=== PATIENT | female | born 1980 | race Caucasian/White ===

== ENCOUNTER 2017-05-21 15:05 | Emergency (ER) ==
[2017-05-21 15:17] VITALS: BP 125/81; TEMP 99.1; BMI 34.0
[2017-05-21] MEDS ORDERED: ZOFRAN 4 MG/2 ML IVP STA (15:18)
[2017-05-21] MEDS ORDERED: TORADOL IVP STA (15:19)
--- NOTE | 2017-05-21 15:20 | ED.PDOC ---
General ED Provider: Dr. FATOU BLOCK JR Chief Complaint: Non-specific Complaint Stated Complaint: Pain mid chest since yesterday. through to back. tried OTC meds for heartburn without relief. Slight nausea 2 1/2 hrs ago. Has also taken Tyl #3 without relief[ End ]99.1 73 20 98% 125/81 05/03 Time Seen by Physician: 15:32 Mode of Arrival: Walk-In Information Source: Patient Exam Limitations: No limitations Primary Care Provider: YOSHI ABRAHAM Nursing and Triage Documentation Reviewed and Agree: No Review of Systems - Review Of Systems Constitutional: Reports: Malaise, Loss of appetite Eyes: Reports: No symptoms Ears, Nose, Mouth, Throat: Reports: No symptoms Respiratory: Reports: Other Cardiac: Reports: Chest pain (tender right parasternal at 4th rib sternal tenderness at xyphoid no other tenderness) GI: Reports: Poor appetite, Other : Reports: No symptoms Musculoskeletal: Reports: No symptoms, Other Skin: Reports: No symptoms Neurological: Reports: No symptoms Endocrine: Reports: No symptoms Hematologic/Lymphatic: Reports: No symptoms All Other Systems: Other Past Medical History - Past Medical History Previously Healthy: Yes Endocrine: Reports: None Cardiovascular: Reports: None Respiratory: Reports: None Hematological: Reports: None Gastrointestinal: Reports: None Genitourinary: Reports: Kidney stones Neuro/Psych: Reports: None Musculoskeletal: Reports: Arthritis Cancer: Reports: None Last Menstrual Period: hysterectomy Other Pertinent Past Medical History: djd - Surgical History General Surgical History: Reports: Hysterectomy, (x3), Cholecystectomy - Family History Family History: Reports: Unknown - Social History Smoking Status: Never smoker Hx Substance Use: No Alcohol Screening: Occasionally Physical Exam - Physical Exam Appearance: Well-appearing, Obese Pain Distress: Moderate Eyes: VINCE, EOMI, Conjunctiva clear ENT: Ears normal, Nose normal, Oropharynx normal Neck: Supple Respiratory: Airway patent, Breath sounds clear, Breath sounds equal, Respirations nonlabored Cardiovascular: RRR, Pulses normal, No rub, No murmur GI/: Soft, Nontender, No masses, No Organomegaly, Bowel sounds hyperactive Musculoskeletal: Normal strength, ROM intact, No edema, No calf tenderness Skin: Warm, Dry, Normal color Neurological: Sensation intact, Motor intact, Reflexes intact, Cranial nerves intact, Alert, Oriented Psychiatric: Affect appropriate, Mood appropriate Interpretation - EKG Interpretation Time of EKG #1: 15:31 Rate: Normal Rhythm: Sinus Ectopy: None [place]: NL ST Segment: Normal Critical Care Note - Critical Care Note Total Time (mins): 0 Course - Course Hematology/Chemistry: 05/21/17 15:40 05/21/17 15:40 Orders, Labs, Meds: Lab Review 05/21/17 15:40 WBC 8.97 RBC 4.29 Hgb 12.8 Hct 38.7 MCV 90.2 MCH 29.8 MCHC 33.1 RDW Coeff of [place]mie 12.2 Plt Count 342 Immature Gran % (Auto) 0.3 Neut % (Auto) 58.1 Lymph % (Auto) 33.4 [place] % (Auto) 7.0 Eos % (Auto) 0.8 Baso % (Auto) 0.4 Immature Gran # (Auto) 0.0 Neut # 5.2 Lymph # 3.0 [place] # 0.6 Eos # 0.1 Baso # 0.0 D-Dimer (Manual) 191.50 Sodium 138 Potassium 3.8 Chloride 101 Carbon Dioxide 23 Anion Gap 17.8 BUN 12 Creatinine 0.80 Estimated GFR (MDRD) 80.00 BUN/Creatinine Ratio 15.00 Glucose 93 Calcium 9.9 Total Bilirubin 0.27 AST 19 ALT 17 Alkaline Phosphatase 60 Total Creatine Kinase 100 Troponin I 0.0100 B-Natriuretic Peptide 10 Total Protein 8.0 Albumin 4.2 Globulin 3.8 Albumin/Globulin Ratio 1.11 Procalcitonin < 0.05 Orders Category Date Time Status EKG-(ED ONLY) Stat CARDIO 05/21/17 15:18 Completed ED IV/MEDIPORT/POWERPORT .ONCE EMERGENCY 05/21/17 15:18 Active IV [ED IV/MEDIPORT/POWERPORT] .ONCE EMERGENCY 05/21/17 15:19 Active B-TYPE NATRIURETIC PEPTIDE Stat LAB 05/21/17 15:40 Completed BLOOD CULTURE Stat LAB 05/21/17 15:40 Received CBC W/ AUTO DIFF Stat LAB 05/21/17 15:40 Completed COMPREHENSIVE METABOLIC PANEL Stat LAB 05/21/17 15:40 Completed CREATINE KINASE Stat LAB 05/21/17 15:40 Completed D-DIMER Stat LAB 05/21/17 15:40 Completed PROCALCITONIN Stat LAB 05/21/17 15:40 Completed TROPONIN I Stat LAB 05/21/17 15:40 Completed 0.9 % Sodium Chloride [Saline Flush] MEDS 05/21/17 15:18 Discontinued 1 syr IVF PRN PRN 0.9 % Sodium Chloride [Saline Flush] MEDS 05/21/17 15:19 Discontinued 1 syr IVF PRN PRN Hydrocodone Bit/Acetaminophen [[place] 7.5-325] MEDS 05/21/17 16:39 Discontinued 1 tab PO ONCE STA Ketorolac Tromethamine [Toradol] MEDS 05/21/17 15:19 Discontinued 30 mg IVP ONCE STA Ondansetron HCl/Pf [Zofran 4 mg/2 ml] MEDS 05/21/17 15:18 Discontinued 4 mg IVP ONCE STA CHEST, 1V AP ONLY Stat RADS 05/21/17 15:18 Completed Medications Discontinued Medications Generic Name Dose Route Start Last Admin Trade Name Freq PRN Reason Stop Dose Admin Acetaminophen/Hydrocodone Bitart 1 tab 05/21/17 16:39 05/21/17 16:51 [place] 7.5-325 PO 05/21/17 16:40 1 tab ONCE STA Administration Ketorolac Tromethamine 30 mg 05/21/17 15:19 05/21/17 16:15 Toradol IVP 05/21/17 15:20 30 mg ONCE STA Administration Ondansetron HCl 4 mg 05/21/17 15:18 05/21/17 16:15 Zofran 4 Mg/2 Ml IVP 05/21/17 15:19 4 mg ONCE STA Administration Sodium Chloride 1 syr 05/21/17 15:18 05/21/17 16:15 Saline Flush IVF 1 syr PRN PRN Administration To flush IV Sodium Chloride 1 syr 05/21/17 15:19 Saline Flush IVF PRN PRN To flush IV Vital Signs: Temp Pulse Resp BP Pulse Ox 05/21/17 15:08 99.1 F 73 20 125/81 98 Departure - Departure Time of Disposition: 17:01 Disposition: HOME SELF-CARE Discharge Problem: Chest wall pain Instructions: Thoracic Pain (ED) Condition: Good Pt referred to PMD for follow-up: Yes Additional Instructions: [place] for pain not controlled by ibuprofen or Aleve may take with Tylenol =up to 3000mg (6 tablets) per 24 hours may take [place] with ibuprofen return if pain worsening if fever over 101.0 if short of breath recheck PMD one week sooner if not resolved no lifting today limit lifting to 10 pounds for ten days the gradually increase as tolerated Prescriptions: Hydrocodone Bit/Acetaminophen [[place] 5-325] 1 - 2 tab PO Q6HR PRN #12 tablet PRN Reason: pain Allergies/Adverse Reactions: Allergies promethazine HCl [From Phenergan] Adverse Reaction (Verified 05/21/17 15:17) Hives Home Medications: Ambulatory Orders Hydrocodone Bit/Acetaminophen [[place] 5-325] 1 - 2 tab PO Q6HR PRN #12 tablet
[2017-05-21 15:49] LABS: BASOPHILS % (AUTO) 0.4 % (0.0-3.0); EOSINOPHILS # (AUTO) 0.1 K/ul (0.0-0.7); EOSINOPHILS % (AUTO) 0.8 % (0.0-7.0); HEMATOCRIT 38.7 % (37.0-47.0); HEMOGLOBIN 12.8 g/dl (12.0-16.0); IMMATURE GRANULOCYTE % (AUTO) 0.3 % (0.0-5.0); LYMPHOCYTES % (AUTO) 33.4 (10.0-50.0); MEAN CORPUSCULAR HEMOGLOBIN 29.8 pg (27.0-31.0); MEAN CORPUSCULAR HGB CONC 33.1 (31.8-35.4); MEAN CORPUSCULAR VOLUME 90.2 fl (81.0-99.0); MONOCYTES # (AUTO) 0.6 K/uL (0.4-2.0); NEUTROPHILS # (AUTO) 5.2 K/ul (2.0-6.9); NEUTROPHILS % (AUTO) 58.1; PLATELET COUNT 342 10^3/uL (140-440); RED BLOOD COUNT 4.29 10^6/ul (4.20-5.40); WHITE BLOOD COUNT 8.97 K/ul (4.6-10.2)
[2017-05-21 16:16] LABS: ALBUMIN 4.2 g/dL (3.4-5.0); ALBUMIN/GLOBULIN RATIO 1.11; ANION GAP 17.8; BILIRUBIN,TOTAL 0.27 mg/dL (0.00-1.20); CALCIUM 9.9 mg/dL (8.2-10.2); CREATININE 0.8 mg/dL (0.60-1.30); POTASSIUM 3.8 mmol/L (3.5-5.10); TROPONIN I 0.01 ng/ml (0.0000-0.4000)
--- NOTE | 2017-05-21 16:21 | DI ---
EXAM: Chest one view HISTORY: Chest pain COMPARISON: 10/15/2014 TECHNIQUE: Single view of the chest was performed FINDINGS: The lungs are clear. There is no pleural effusion or pneumothorax. The heart is normal in size. The mediastinal contour is normal. There are no acute abnormalities of the bones. IMPRESSION: No acute cardiopulmonary process.
[2017-05-21] MEDS ORDERED: NORCO 7.5-325 PO STA (16:39)
== END 2017-05-21 17:12 | disposition home or self-care (01) ==
LOC: ED 15:05
DX: R07.89 Other chest pain (principal)
CPT/HCPCS: 36415; 80053; 82550; 83880; 84145; 84484; 85025; 85379; 87040; 93005; 93010; 96374; 96375; 99283

== ENCOUNTER 2017-08-03 04:51 | Emergency (ER) ==
[2017-08-03 05:03] VITALS: BP 128/81; TEMP 98.5; BMI 33.5
[2017-08-03] MEDS ORDERED: SODIUM CHLORIDE 1,000 ML IV STA (05:05)
[2017-08-03 05:23] LABS: BASOPHILS # (AUTO) 0.1 K/uL (0-0.2); BASOPHILS % (AUTO) 0.6 % (0.0-3.0); EOSINOPHILS % (AUTO) 0.3 % (0.0-7.0); HEMATOCRIT 35.2 % (37.0-47.0); IMMATURE GRANULOCYTE % (AUTO) 0.3 % (0.0-5.0); LYMPHOCYTES # (AUTO) 2.2 K/uL (0.60-3.4); LYMPHOCYTES % (AUTO) 20.6 (10.0-50.0); MEAN CORPUSCULAR HEMOGLOBIN 30.3 pg (27.0-31.0); MEAN CORPUSCULAR HGB CONC 34.1 (31.8-35.4); MEAN CORPUSCULAR VOLUME 88.9 fl (81.0-99.0); MONOCYTES # (AUTO) 0.8 K/uL (0.4-2.0); MONOCYTES % (AUTO) 7.9 (0-10); NEUTROPHILS # (AUTO) 7.4 K/ul (2.0-6.9); NEUTROPHILS % (AUTO) 70.3; PLATELET COUNT 307 10^3/uL (140-440); RED BLOOD COUNT 3.96 10^6/ul (4.20-5.40); WHITE BLOOD COUNT 10.52 K/ul (4.6-10.2)
[2017-08-03 05:29] LABS: BILIRUBIN,URINE Negative (NEGATIVE); KETONES,URINE Trace (NEGATIVE); LEUKOCYTE ESTERASE ,URINE 3+ (NEGATIVE); NITRITE,URINE Positive (NEGATIVE); PROTEIN,URINE 1+ (NEGATIVE); URINE, BLOOD Negative (NEGATIVE)
[2017-08-03 05:32] LABS: ADD URINE MICROSCOPIC YES
[2017-08-03] MEDS ORDERED: TORADOL IVP STA (05:37)
[2017-08-03] MEDS ORDERED: ZOFRAN 4 MG/2 ML IVP STA (05:37)
[2017-08-03] MEDS ORDERED: MORPHINE 2 MG/ML SYRINGE IVP STA (05:37)
--- NOTE | 2017-08-03 05:37 | ED.PDOC ---
General ED Provider: Dr. YOSHI ABRAHAM-ER Chief Complaint: Abdominal Pain Stated Complaint: im hurting Time Seen by Physician: 05:00 Mode of Arrival: Wheelchair Information Source: Patient Exam Limitations: No limitations Primary Care Provider: YOSHI ABRAHAM Nursing and Triage Documentation Reviewed and Agree: Yes GI Complaint Exam - Abdominal Pain Complaint/Exam Onset: Gradual Duration: several hours Symptoms Are: Still present Timing: Constant Initial Severity: Mild Current Severity: Moderate Location of Pain: RLQ Radiates To: Reports: Back, Flank Character: Reports: Dull, Aching Aggravating: Reports: None Alleviating: Reports: None Associated Signs and Symptoms: Reports: Back pain, Urinary frequency Surgical Obstruction Risk Factors: Reports: Prior abdominal surgery Related Surgical History: Reports: [place], BSO Patient Rh Status: Unknown Abdominal Findings: Present: None Differential Diagnoses: Constipation, Pancreatitis, Ureteral Stone, UTI Quality Indicator For Non-Traumatic Chest Pain/Syncope: EKG Performed Review of Systems - Review Of Systems Constitutional: Reports: No symptoms Eyes: Reports: No symptoms Ears, Nose, Mouth, Throat: Reports: No symptoms Respiratory: Reports: No symptoms Cardiac: Reports: No symptoms GI: Reports: Abdominal pain : Reports: No symptoms, Hematuria Musculoskeletal: Reports: No symptoms Skin: Reports: No symptoms Neurological: Reports: No symptoms Endocrine: Reports: No symptoms Hematologic/Lymphatic: Reports: No symptoms All Other Systems: Reviewed and Negative Past Medical History - Past Medical History Previously Healthy: Yes Endocrine: Reports: None Cardiovascular: Reports: None Respiratory: Reports: None Hematological: Reports: None Gastrointestinal: Reports: None Genitourinary: Reports: Kidney stones Neuro/Psych: Reports: None Musculoskeletal: Reports: Arthritis Cancer: Reports: None Last Menstrual Period: PT HAS HAD A HYSTERECTOMY Other Pertinent Past Medical History: djd - Surgical History General Surgical History: Reports: Hysterectomy, (x3), Cholecystectomy - Family History Family History: Reports: Unknown - Social History Smoking Status: Never smoker Hx Substance Use: No Alcohol Screening: Occasionally Lives: With family - Immunizations Tetanus Shot up to Date: No Physical Exam - Physical Exam Appearance: Well-appearing, No pain distress, Well-nourished Eyes: VINCE, EOMI, Conjunctiva clear ENT: Ears normal, Nose normal, Oropharynx normal Neck: Supple Respiratory: Airway patent, Breath sounds clear, Breath sounds equal, Respirations nonlabored Cardiovascular: RRR, Pulses normal, No rub, No murmur GI/: Soft, No masses, Bowel sounds normal, No Organomegaly Musculoskeletal: Normal strength Skin: Warm Neurological: Sensation intact Psychiatric: Affect appropriate, Mood appropriate Interpretation - Radiology Interpretation Radiology Interpretation By: Radiologist Radiology Results: Positive Exam Interpreted: CT Scan Critical Care Note - Critical Care Note Total Time (mins): 0 Course - Course Hematology/Chemistry: 08/03/17 05:15 08/03/17 05:15 Orders, Labs, Meds: Lab Review 08/03/17 08/03/17 05:15 05:20 WBC 10.52 H RBC 3.96 L Hgb 12.0 Hct 35.2 L MCV 88.9 MCH 30.3 MCHC 34.1 RDW Coeff of [place] 12.0 Plt Count 307 Immature Gran % (Auto) 0.3 Neut % (Auto) 70.3 Lymph % (Auto) 20.6 [place] % (Auto) 7.9 Eos % (Auto) 0.3 Baso % (Auto) 0.6 Immature Gran # (Auto) 0.0 Neut # 7.4 H Lymph # 2.2 [place] # 0.8 Eos # 0.0 Baso # 0.1 ESR 20 Sodium 134 L Potassium 3.8 Chloride 106 Carbon Dioxide 20 L Anion Gap 11.8 BUN 15 Creatinine 0.75 Estimated GFR (MDRD) 86.00 BUN/Creatinine Ratio 20.00 Glucose 111 H Calcium 9.4 Total Bilirubin 0.17 AST 13 L ALT 15 Alkaline Phosphatase 50 Total Protein 7.3 Albumin 3.5 Globulin 3.8 Albumin/Globulin Ratio 0.92 Amylase 43 Lipase 29 Urine Color [place] Urine Clarity Clear Urine pH 7.0 Ur Specific [place] 1.020 Urine Protein 1+ Urine Glucose (UA) Trace Urine Ketones Trace Urine Blood Negative Urine Nitrite Positive Urine Bilirubin Negative Urine Urobilinogen 1.0 Ur Leukocyte Esterase 3+ Urine Microscopic WBC 10-20 Ur Squamous Epith Cells 5-10 Urine Bacteria 2+ Orders Category Date Time Status EKG-(ED ONLY) Stat CARDIO 08/03/17 05:02 Completed NPO REMINDER: IMAGING ONCE CARE 08/03/17 05:05 Completed ED IV/MEDIPORT/POWERPORT .ONCE EMERGENCY 08/03/17 05:05 Active AMYLASE Stat LAB 08/03/17 05:15 Completed CBC W/ AUTO DIFF Stat LAB 08/03/17 05:15 Completed COMPREHENSIVE METABOLIC PANEL Stat LAB 08/03/17 05:15 Completed ESR Stat LAB 08/03/17 05:15 Completed LIPASE Stat LAB 08/03/17 05:15 Completed URINALYSIS C & S IF INDICATED Stat LAB 08/03/17 05:20 Completed URINE CULTURE Routine LAB 08/03/17 05:32 Received 0.9 % Sodium Chloride [Saline Flush] MEDS 08/03/17 05:05 Ordered 1 syr IVF PRN PRN Ketorolac Tromethamine [Toradol] MEDS 08/03/17 05:37 Discontinued 30 mg IVP ONCE STA Morphine Sulfate [Morphine 2 mg/ml Syringe] MEDS 08/03/17 05:37 Discontinued 2 mg IVP ONCE STA Ondansetron HCl/Pf [Zofran 4 mg/2 ml] MEDS 08/03/17 05:37 Discontinued 4 mg IVP ONCE STA Sodium Chloride 0.9% [Sodium Chloride] 1,000 ml MEDS 08/03/17 05:[address] ABDOMEN/PELVIS W/WO CONTRAS Stat RADS 08/03/17 05:05 Completed Medications Generic Name Dose Route Start Last Admin Trade Name Freq PRN Reason Stop Dose Admin Sodium Chloride 1 syr 08/03/17 05:05 08/03/17 05:52 Saline Flush IVF 1 syr PRN PRN Administration To flush IV Discontinued Medications Generic Name Dose Route Start Last Admin Trade Name Freq PRN Reason Stop Dose Admin Sodium Chloride 1,000 mls @ 1,000 mls/hr 08/03/17 05:05 08/03/17 05:26 Sodium Chloride IV 08/03/17 06:04 1,000 mls/hr BOLUS STA Administration Ketorolac Tromethamine 30 mg 08/03/17 05:37 08/03/17 05:51 Toradol IVP 08/03/17 05:38 30 mg ONCE STA Administration Morphine Sulfate 2 mg 08/03/17 05:37 08/03/17 05:51 Morphine 2 Mg/Ml Syringe IVP 08/03/17 05:38 2 mg ONCE STA Administration Ondansetron HCl 4 mg 08/03/17 05:37 08/03/17 05:51 Zofran 4 Mg/2 Ml IVP 08/03/17 05:38 4 mg ONCE STA Administration Vital Signs: Temp Pulse Resp BP Pulse Ox 08/03/17 04:52 98.5 F 82 16 128/81 97 Departure - Departure Time of Disposition: 06:38 Disposition: HOME SELF-CARE Discharge Problem: Ovarian cyst Qualifiers: Laterality: right Qualifier Code: (N83.201) Unspecified ovarian cyst, right side UTI (urinary tract infection) Qualifiers: Urinary tract infection type: site unspecified Hematuria presence: without hematuria Qualifier Code: (N39.0) Urinary tract infection, site not specified Instructions: Ovarian Cyst (ED) Condition: Good Pt referred to PMD for follow-up: Yes Additional Instructions: percocet 7.5mg q 4hrs prn pain #12---levaquin 500mg #7--return friday am for pelvic u/s and then see dr simeon after u/s Allergies/Adverse Reactions: Allergies promethazine HCl [From Phenergan] Adverse Reaction (Verified 08/03/17 05:03) Hives Home Medications: Ambulatory Orders Estrogens, Conjugated [Premarin] 0.625 mg PO DAILY 08/03/17 Gabapentin [Neurontin] 600 mg PO BID 08/03/17 Hydrocodone/Acetaminophen [Hydrocodon-Acetaminophn 10-325] 1 each PO TID PRN 09/09 Disposition Discussed With: Patient, Family
[2017-08-03 05:38] LABS: BACTERIA,URINE 2+ (NOT PRESENT)
[2017-08-03 05:45] LABS: ALBUMIN 3.5 g/dL (3.4-5.0); ALBUMIN/GLOBULIN RATIO 0.92; ANION GAP 11.8; BILIRUBIN,TOTAL 0.17 mg/dL (0.00-1.20); CALCIUM 9.4 mg/dL (8.2-10.2); CREATININE 0.75 mg/dL (0.60-1.30); POTASSIUM 3.8 mmol/L (3.5-5.10); TOTAL PROTEIN 7.3 g/dL (6.4-8.2)
[2017-08-03 05:50] LABS: ERYTHROCYTE SEDIMENTATION RATE 20 mm/hr (0-20); ESR INTERNAL QC INTERNAL QC VALID
--- NOTE | 2017-08-03 06:30 | CT ---
EXAM: CT of the abdomen and pelvis with and without IV contrast. HISTORY: Lower abdominal pain. PROCEDURE: Contiguous axial CT images of the abdomen and pelvis with and without IV contrast with c oronal and sagittal reformats. FINDINGS: The liver is normal in appearance. The gallbladder is surgically absent. The pancreas, s pleen, adrenal glands and kidneys are normal in appearance. The abdominal aorta is normal in appeara nce. The appendix is not visualized. The other visualized loops of bowel are normal in appearance. The bladder is adequately filled with no abnormality identified. There is a 4.3 cm complex cyst in the right adnexa with minimal adjacent complex free fluid extending into the cul-de-sac. The uterus is surgically absent. There are degenerative changes in the spine. Impression: 4.3 cm complex right adnexal cyst with minimal adjacent complex free fluid extending int o the cul-de-sac. Recommend pelvic ultrasound for further evaluation. Hysterectomy. Cholecystectomy.
[2017-08-03] MEDS ORDERED: DILAUDID 1 MG/ML SYRINGE IVP STA (06:37)
== END 2017-08-03 06:25 | disposition home or self-care (01) ==
LOC: ED 04:51
DX: N83.201 Unspecified ovarian cyst, right side (principal); N39.0 Urinary tract infection, site not specified
CPT/HCPCS: 36415; 80053; 81001; 82150; 83690; 85025; 85651; 87086; 93005; 93010; 96361; 96374; 96375; 99284

== ENCOUNTER 2018-04-27 11:37 | Outpatient (CLI) | END 2018-04-27 11:38 | disposition home or self-care (01) | LOC: FCC-LAB 11:37 | PROVIDERS: ATTEND Nurse Practitioner Family | DX: R53.83 Other fatigue (principal); M25.50 Pain in unspecified joint; W57.XXXA Bitten or stung by nonvenomous insect and other nonvenomous arthropods, initial encounter | CPT/HCPCS: 36415; 80053; 82306; 85025; 86038; 86430; 86617; 86664; 86757; 87798 ==